=== PATIENT | male | born 1980 | race Caucasian/White ===

== ENCOUNTER 2017-03-19 23:55 | Emergency (ER) | payer OTHER ==
[~2017-03-19 23:55] MED LIST: AUGMENTIN875 M1 PO; AUGMENTIN875 MG PO; HYDROCODON-ACE1 EAC9 PO; LORTAB 7.5-3251 EACH PO; NEURONTIN PO; NEURONTIN300 MG PO; NEURONTIN800 MG PO; VOLTAREN75 MG PO; ZANTAC PO
[2017-03-20] MEDS ORDERED: NO MEDICATIONS (00:03)
== END 2017-03-20 01:17 | disposition home or self-care (01) ==
LOC: SED 23:55
DX: L02.01 Cutaneous abscess of face (principal); I10 Essential (primary) hypertension; F17.200 Nicotine dependence, unspecified, uncomplicated
CPT/HCPCS: 99282